=== PATIENT | female | born 1995 | race African-American/Black ===

== ENCOUNTER 2019-05-05 18:04 | Emergency (ER) | payer SELFPAY ==
[2019-05-05 18:27] VITALS: TEMP 98; BMI 31.0
[2019-05-05] MEDS ORDERED: KETOROLAC TROMETHAMINE 30 MG/1 ML VIAL IM ONE (19:39)
[2019-05-05] MEDS ORDERED: KETOROLAC TROMETHAMINE 30 MG/1 ML VIAL ONE (19:52)
[2019-05-05] MEDS ORDERED: CEPHALEXIN 250 MG/5 ML ORAL SUSPENSION PO ONE (20:04)
--- NOTE | 2019-05-05 20:06 | PDOC ---
History of Present Illness - General Chief Complaint: Wound Stated Complaint: LOWER ABD PAIN Time Seen by Provider: 05/05/19 18:47 History Source: Patient Exam Limitations: No Limitations - History of Present Illness Initial Comments: 05/05/19 20:05 24-year-old female reports blood glucose in the 300's 3 weeks ago on routine blood exam was started on metformin 1 g twice daily of which she took for 10 days and was told to discontinue by her PMD. Then developed a yeast infection 1 week ago which was treated by her [facility] [employer] physician. Presents today complaining of left vaginal labia pain and swelling x24 hours. LMP 1 week ago, denies sexual activity since December 2018, vaginal discharge, fever, chills, abdominal pain, urinary complaints, back pain or any other complaints. Denies history of STIs. Has not taken any pain medication today. ROS: GENERAL/CONSTITUTIONAL: No fever, chills, weakness, dizziness HEAD, EYES, EARS, NOSE AND THROAT: No changes in vision, No ear pain or discharge, No sore throat CARDIOVASCULAR: No chest pain RESPIRATORY: No shortness of breath or cough GASTROINTESTINAL: No pain, nausea, vomiting, diarrhea or constipation GENITOURINARY: Left vaginal labia pain and swelling, no dysuria MUSCULOSKELETAL: No neck or back pain SKIN: No rash NEUROLOGIC: No headache, vertigo, loss of consciousness, or loss of sensation PE: GENERAL: well-appearing, NAD HEAD: NCAT EYES: Pupils equal, round and reactive to light, sclera anicteric, conjunctiva clear ENT: pharynx: no erythema, no exudate, uvula midline NECK: supple CHEST: nontender RESP: clear, no w/r/r CARDIO: rrr, no m/g/r ABD: +BS, soft, nontender, non distended pelvic: Left labia swelling, indurated area approximately 2 cm x 1.5 cm to left lower labia with small fluctuant center, no drainage or bleeding noted, no palpable inguinal lymph nodes BACK: no midline spinal ttp, no CVAT EXTREMITIES: Normal range of motion, no edema NEUROLOGICAL: Normal speech, normal gait SKIN: Warm, Dry Is this a multiple visit Asthma Patient?: No Past History - Past Medical History Allergies/Adverse Reactions: Allergies Allergy/AdvReac Type Severity Reaction Status Date / Time No Known Allergies Allergy Verified 05/05/19 18:15 Home Medications: Ambulatory Orders Cephalexin [Keflex] 500 mg PO QID 10 Days #40 capsule 05/05/19 COPD: No - Psycho Social/Smoking Cessation Hx Smoking History: Never smoked *Physical Exam - Vital Signs Last Vital Signs Temp Pulse Resp BP Pulse Ox 98 F 100 H 18 125/71 99 05/05/19 18:17 05/05/19 18:17 05/05/19 18:17 05/05/19 18:17 05/05/19 18:17 Procedures - Incision and Drainage I&D Site: Left: Other (vaginal labia) Betadine cleansed: Yes Anesthesia: 1% Lidocaine Volume(ml): 5 (Approximately 5 mL's of serosanguineous drainage expressed) Blade Size: 11 Attempts: 1 Iodinated Packin/4 in Complications: none Dressing: No Medical Decision Making - Medical Decision Making 05/05/19 20:25 24-year-old female with left labial abscess I&D of abscess Tetanus up-to-date IM Toradol P.o. cephalexin Follow-up with [facility] [employer] Return return precautions Discharge - Discharge Information Problems reviewed: Yes Clinical Impression/Diagnosis: Labial abscess Condition: Stable Disposition: HOME - Admission No - Follow up/Referral - Patient Discharge Instructions Additional Instructions: Take cephalexin 500 mg every 6 hours for 10 days Follow-up with your [employer] doctor within 2 to 3 days Return to ED immediately if symptoms worsen Take ibuprofen 600 mg every 6 hours as needed for pain - Post Discharge Activity
[2019-05-05] MEDS ORDERED: CEPHALEXIN MONOHYDRATE 500 MG CAPSULE (UD) ONE (20:18)
[2019-05-05 20:41] VITALS: BP 122/70; PULSE 88
--- NOTE | 2019-05-06 00:36 | PDOC ---
*Physical Exam - Vital Signs Last Vital Signs Temp Pulse Resp BP Pulse Ox 98 F 88 18 122/70 98 05/05/19 18:17 05/05/19 20:40 05/05/19 20:40 05/05/19 20:40 05/05/19 20:40 ED Treatment Course - Medications Given in the ED: ED Medications Discontinued Medications Generic Name Dose Route Start Last Admin Trade Name Gasper PRN Reason Stop Dose Admin Cephalexin 500 mg 05/05/19 20:04 05/05/19 20:22 Keflex Oral Suspension - PO 05/05/19 20:05 500 mg ONCE ONE Administration Ketorolac Tromethamine 30 mg 05/05/19 19:39 05/05/19 20:22 Toradol Injection - IM 05/05/19 19:40 30 mg ONCE ONE Administration Medical Decision Making - Medical Decision Making 05/06/19 00:35 Case reviewed, was available for consultation during clinical course Discharge - Discharge Information Problems reviewed: Yes Clinical Impression/Diagnosis: Labial abscess Condition: Stable Disposition: HOME - Additional Discharge Information Prescriptions: Cephalexin [Keflex] 500 mg PO QID 10 Days #40 capsule - Follow up/Referral - Patient Discharge Instructions Additional Instructions: Take cephalexin 500 mg every 6 hours for 10 days Follow-up with your [facility] doctor within 2 to 3 days Return to ED immediately if symptoms worsen Take ibuprofen 600 mg every 6 hours as needed for pain - Post Discharge Activity
== END 2019-05-05 20:41 | disposition home or self-care (01) ==
LOC: JER 18:04
PROC: 0U9M0ZZ Drainage of Vulva, Open Approach (ICD-10-PCS; principal; 2019-05-05)
PROC: 3E0233Z Introduction of Anti-inflammatory into Muscle, Percutaneous Approach (ICD-10-PCS; 2019-05-05)
DX: N76.4 Abscess of vulva (principal)
CPT/HCPCS: 99284-25

== ENCOUNTER 2019-05-08 20:42 | Emergency (ER) | payer SELFPAY ==
[2019-05-08 20:53] VITALS: BP 131/81; PULSE 106; TEMP 98; BMI 31.1
[2019-05-08] MEDS ORDERED: CEPHALEXIN MONOHYDRATE 500 MG CAPSULE (UD) PO ONE (21:17)
--- NOTE | 2019-05-08 21:21 | PDOC ---
History of Present Illness - General Chief Complaint: Edema Stated Complaint: SUTURE PAIN Time Seen by Provider: 05/08/19 20:59 History Source: Patient Exam Limitations: No Limitations - History of Present Illness Initial Comments: 05/08/19 21:23 Patient is a 24-year-old female who presents to the ED for follow-up of her left labial abscess. She states she was here on 05/05/2019 and had the labial abscess I&D. She states that the packing fell out on its own. She was unable to mushroom picker her antibiotics and states she will pick them up tomorrow. She has not been doing sitz bath. She states the pain has been the same since the I&D. She denies any fevers or chills. She states she has a history of hypertension and is on metoprolol. Past History - Past Medical History Allergies/Adverse Reactions: Allergies Allergy/AdvReac Type Severity Reaction Status Date / Time No Known Allergies Allergy Verified 05/08/19 20:53 Home Medications: Ambulatory Orders Cephalexin [Keflex] 500 mg PO QID 10 Days #40 capsule 05/05/19 COPD: No - Reproductive History Therapeutic (s) & number: No - Immunization History Immunization Up to Date: Yes - Psycho Social/Smoking Cessation Hx Smoking History: Never smoked Hx Alcohol Use: No Drug/Substance Use Hx: No Review of Systems - Review of Systems Comments:: 05/08/19 21:24 - Review of Systems Able to Perform ROS?: Yes Constitutional: No: Fever, Chills, Loss of Appetite, Night Sweats, Weakness Respiratory: No: Cough, Shortness of Breath, Wheezing, Sputum Production Cardiac (ROS): No: Chest Pain, Chest Tightness, Palpitations, Irregular Heart Beat, Edema ABD/GI: No: Nausea, Vomiting, Abdominal Pain, Diarrhea : No Dysuria, No Hematuria, No Frequency, No Urgency, positive left labial abscess Musculoskeletal: No: Muscle Pain, Back Pain, Joint Pain, Muscle Weakness, Neck Pain Integumentary: No: Lesions, Rash Neurological: No: Headache, Numbness, Tingling, Weakness, Speech Difficulties *Physical Exam - Vital Signs Last Vital Signs Temp Pulse Resp BP Pulse Ox 98.0 F 106 H 18 131/81 98 05/08/19 20:47 05/08/19 20:47 05/08/19 20:47 05/08/19 20:47 05/08/19 20:47 - Physical Exam 05/08/19 21:24 - Physical Exam General Appearance: Nourished, Appropriately Dressed, No Distress Neck: Supple, No Lymphadenopathy (R), No Lymphadenopathy (L), No Rigidity, No Decreased range of motion Respiratory/Chest: Lungs Clear, Normal Breath Sounds. No Respiratory Distress, No Accessory Muscle Use Cardiovascular: Regular Rhythm, Regular Rate, S1, S2 Gastrointestinal/Abdominal: Normal Bowel Sounds, Soft. Non-tender, No Guarding , No Rebound, No Rigidity FACETER: There is a left labial abscess with healing incision site appreciated. There is no fluctuance and moderate induration appreciated. There is significant tenderness to palpation. There is no active drainage. There is no foul odor. Musculoskeletal: Normal Inspection. No Decreased Range of Motion Extremity: Normal Capillary Refill, Normal Inspection Integumentary: Normal Color, Dry. No Rash Neurologic: gas tester II-XII NML intact, Fully Oriented, Alert, Normal Mood/Affect, Normal Response Medical Decision Making - Medical Decision Making 05/08/19 21:18 Assessment: Patient is a 24-year-old female with a left labial abscess that was drained a few days ago. The patient states that the packing fell out on its own. She was unable to mushroom picker her antibiotics until tomorrow. Plan: The patient has been made aware that there is no fluctuance or area to be drained today. She must continue to do sits baths and take the antibiotics prescribed. A dose of the antibiotic was given to her today in the emergency department. She has been advised that if the abscess recollects, she may require another I&D. She should follow-up with [facility] for further evaluation and treatment and referral has been given to her. She understands and agrees with this treatment plan and the patient is stable for discharge. She has been encouraged to mushroom picker her prescription as soon as possible and started immediately. Discharge - Discharge Information Problems reviewed: Yes Clinical Impression/Diagnosis: Left genital labial abscess Condition: Stable Disposition: HOME - Follow up/Referral Referrals: Nelly Downs MD [Staff Physician] - 2 Days - Patient Discharge Instructions Patient Printed Discharge Instructions: Vulvar Abscess Additional Instructions: Do sitz bath several times daily to help your abscess resolved. 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 Follow- up with [facility] within 2 days for repeat evaluation. If you do not have an OB/ FACETER, one has been referred to you. - Post Discharge Activity Work/Back to School Note: Back to Work
[2019-05-08] MEDS ORDERED: CEPHALEXIN MONOHYDRATE 500 MG CAPSULE (UD) ONE (21:22)
== END 2019-05-08 21:41 | disposition home or self-care (01) ==
LOC: JERFT 20:42
DX: N76.4 Abscess of vulva (principal); I10 Essential (primary) hypertension
CPT/HCPCS: 99283-25

== ENCOUNTER 2020-06-23 10:20 | Inpatient (IN) | payer OTHER ==
[2020-06-23] MEDS ORDERED: METOCLOPRAMIDE HCL INJECTION 10 MG/2 ML VIAL ONE (12:22)
[2020-06-23 12:23] LABS: BASO % 0.1 % (0-2.0); EOS % 0.7 % (0-4.5); HEMATOCRIT 33.3 % (32.4-45.2); HEMOGLOBIN 11.2 GM/dL (10.7-15.3); LYMPH % 27.5 % (8-40); MCHC 33.8 g/dl (32.0-36.0); MEAN CELL VOLUME 83.1 fl (80-96); MEAN PLT VOLUME 9.6 fl (7.5-11.1); MONO % 7.2 % (3.8-10.2); NEUT % 64.5 % (42.8-82.8); PLATELET COUNT 176 K/MM3 (134-434); RBC 4.01 M/mm3 (3.60-5.2); RDW 14.3 % (11.6-15.6); WHITE BLOOD COUNT 6.1 K/mm3 (4.0-10.0)
[2020-06-23 12:29] VITALS: BMI 29.5
[2020-06-23] MEDS ORDERED: OXYTOCIN 20 UNITS in 0.9% NS 20 UNIT/1,000 ML INFUS.BAG IV ONE (12:30)
[2020-06-23 12:31] LABS: INR 0.92 (0.83-1.09); PROTHROMBIN TIME (PATIENT) 11.2 SEC (9.7-13.0)
[2020-06-23] MEDS ORDERED: PHENYLEPHRINE HCL 10 MG/1 ML SINGLE DOSE VIAL ONE (12:32)
[2020-06-23] MEDS ORDERED: ceFAZolin SODIUM 1 GM VIAL ONE (12:32)
[2020-06-23 12:34] LABS: ACTIVATED PTT 25.5 SECONDS (25.2-36.5)
[2020-06-23] MEDS ORDERED: morphine SULFATE/PF 0.5 MG/ML (2cc Syringe - QUVA) ONE (12:35)
[2020-06-23 12:48] LABS: CALCIUM 8.9 mg/dL (8.5-10.1)
[2020-06-23 12:49] LABS: BLOOD UREA NITROGEN 8.5 mg/dL (7-18)
[2020-06-23 12:52] LABS: CREATININE 0.9 mg/dL (0.55-1.3)
[2020-06-23] MEDS ORDERED: KETOROLAC TROMETHAMINE 30 MG/1 ML VIAL ONE (13:24)
[2020-06-23] MEDS ORDERED: ONDANSETRON 4 MG/2 ML VIAL ONE (13:24)
[2020-06-23] MEDS ORDERED: ONDANSETRON 4 MG/2 ML VIAL IVPUSH PRN (13:27)
[2020-06-23] MEDS ORDERED: morphine SULFATE/PF 0.5 MG/ML (2cc Syringe - QUVA) EP ONE (13:27)
[2020-06-23] MEDS ORDERED: IBUPROFEN 800 MG/8 ML IJ IVPB PRN (14:01)
[2020-06-23] MEDS ORDERED: ONDANSETRON 4 MG/2 ML VIAL IVPB PRN (14:01)
[2020-06-23] MEDS ORDERED: IBUPROFEN 600 MG TABLET (FP) PO PRN (14:01)
[2020-06-23] MEDS ORDERED: SENNOSIDES/DOCUSATE COMBO (SENNA PLUS) TABLET (UD) PO PRN (14:01)
[2020-06-23] MEDS ORDERED: ACETAMINOPHEN 325 MG TABLET (FP) PO PRN (14:01)
[2020-06-23] MEDS ORDERED: ACETAMINOPHEN 1000 MG/100 ML VIAL (NON FORMULARY) IVPB PRN (14:01)
[2020-06-23] MEDS ORDERED: METHYLERGONOVINE MALEATE 0.2 MG TABLET (FP) PO PRN (14:01)
[2020-06-23] MEDS ORDERED: OXYTOCIN 20 UNITS in 0.9% NS 20 UNIT/1,000 ML INFUS.BAG IV SCH (14:15)
[2020-06-23] MEDS: CEFAZOLIN 2 GM/D5W 2 GM/50 ML ML IVPB SCH (17:54)
[2020-06-24] MEDS: CEFAZOLIN 2 GM/D5W 2 GM/50 ML ML IVPB SCH (01:23)
[2020-06-24] MEDS: oxyCODONE HCL 5 MG TABLET PO PRN (08:27)
[2020-06-24 10:05] LABS: BASO % 0.2 % (0-2.0); EOS % 0.5 % (0-4.5); HEMATOCRIT 32.3 % (32.4-45.2); HEMOGLOBIN 10.7 GM/dL (10.7-15.3); LYMPH % 17.9 % (8-40); MCH 27.6 pg (25.7-33.7); MCHC 33.2 g/dl (32.0-36.0); MONO % 8.3 % (3.8-10.2); NEUT % 73.1 % (42.8-82.8); PLATELET COUNT 175 K/MM3 (134-434); RBC 3.89 M/mm3 (3.60-5.2); RDW 14.4 % (11.6-15.6); WHITE BLOOD COUNT 6.7 K/mm3 (4.0-10.0)
[2020-06-24] MEDS: IBUPROFEN 600 MG TABLET (FP) PO PRN ×2 (11:27→18:39)
[2020-06-24] MEDS: ACETAMINOPHEN 325 MG TABLET (FP) PO PRN ×2 (11:28→18:39)
[2020-06-24] MEDS ORDERED: BISACODYL 10 MG SUPP.RECT RC PRN (14:02)
[2020-06-25] MEDS: ACETAMINOPHEN 325 MG TABLET (FP) PO PRN ×3 (00:46→17:27)
[2020-06-25] MEDS: IBUPROFEN 600 MG TABLET (FP) PO PRN ×3 (00:46→17:27)
[2020-06-25] MEDS: oxyCODONE HCL 5 MG TABLET PO PRN (00:47)
[2020-06-25] MEDS: SIMETHICONE 80 MG TAB.CHEW (FP) PO PRN ×2 (00:47→12:30)
[2020-06-25 11:42] VITALS: BP 124/73; PULSE 80; TEMP 98
== END 2020-06-25 18:00 | disposition home or self-care (01) | DRG 540 ==
LOC: JDEL 10:20 → JLDR 12:00 → J3W 17:51
PROVIDERS: ADMIT Specialist; ATTEND Specialist
PROC: 10D00Z1 Extraction of Products of Conception, Low, Open Approach (ICD-10-PCS; principal; 2020-06-23)
DX: O28.9 Unspecified abnormal findings on antenatal screening of mother (principal); O24.425 Gestational diabetes mellitus in childbirth, controlled by oral hypoglycemic drugs; O36.8330 Maternal care for abnormalities of the fetal heart rate or rhythm, third trimester, not applicable or unspecified; O36.63X0 Maternal care for excessive fetal growth, third trimester, not applicable or unspecified; O40.3XX0 Polyhydramnios, third trimester, not applicable or unspecified; Z3A.37 37 weeks gestation of pregnancy; Z37.0 Single live birth
CPT/HCPCS: 36415; 59025; 76819-TC; 80048; 82962; 85025; 85610; 85730; 86780; 86850; 86900; 86901; 88307-TC; C9803; J0131; U0003; U0005

== ENCOUNTER 2023-08-15 02:38 | Emergency (ER) | payer OTHER ==
[2023-08-15 02:55] VITALS: BMI 26.1
[2023-08-15] MEDS: SODIUM CHLORIDE 0.9% 500 ML INFUS.BAG IV ONE (03:16)
[2023-08-15 03:43] LABS: VENOUS BASE EXCESS -1.5 mmol/L (-2-2); VENOUS O2 SATURATION 60.2 % (70-80); VENOUS PH 7.385 (7.310-7.410)
[2023-08-15 03:48] LABS: BASO % 0.2 % (0-2.0); HEMATOCRIT 37.6 % (32.4-45.2); HEMOGLOBIN 12.7 GM/dL (10.7-15.3); LYMPH % 33.6 % (8-40); MCH 27.4 pg (25.7-33.7); MCHC 33.9 g/dl (32.0-36.0); MEAN CELL VOLUME 80.9 fl (80-96); MEAN PLT VOLUME 9.2 fl (7.5-11.1); MONO % 6.2 % (3.8-10.2); PLATELET COUNT 238 10^3/uL (134-434); RBC 4.64 M/mm3 (3.60-5.2); RDW 14.1 % (11.6-15.6); WHITE BLOOD COUNT 5.9 K/mm3 (4.0-10.0)
[2023-08-15 04:16] LABS: CHLORIDE 100 mmol/L (98-107); POTASSIUM 3.7 mmol/L (3.5-5.1); SODIUM 132 mmol/L (136-145)
[2023-08-15 04:18] LABS: CALCIUM 8.6 mg/dL (8.5-10.1)
[2023-08-15 04:19] LABS: ALBUMIN 3.7 g/dl (3.4-5.0); ANION GAP 9 mmol/L (4-13); BLOOD UREA NITROGEN 11.7 mg/dL (7-18); CO2 23 mmol/L (21-32); MAGNESIUM 1.8 mg/dL (1.8-2.4)
[2023-08-15 04:22] LABS: CREATININE 0.8 mg/dL (0.55-1.3); SGOT/AST 6 U/L (15-37); SGPT/ALT 14 U/L (13-61)
[2023-08-15 04:23] LABS: BILIRUBIN,TOTAL 0.4 mg/dL (0.2-1); TOT PROT 7.1 g/dl (6.4-8.2)
[2023-08-15 04:25] LABS: ALK PHOS 97 U/L (45-117)
[2023-08-15 04:28] LABS: GLUCOSE,RANDOM 424 mg/dL (74-106)
[2023-08-15] MEDS ORDERED: INSULIN (NOVOLOG) ASPART 100 UNITS/ML 10ML VIAL ONE (04:39)
[2023-08-15] MEDS: LACTATED RINGERS SOLUTION 1,000 ML/1,000 ML INFUS.BAG IV SCH (04:47)
[2023-08-15] MEDS: INSULIN REGULAR HUMAN 100 UNITS/ML *VIAL IVPUSH ONE (04:47)
[2023-08-15] MEDS ORDERED: POTASSIUM CHLORIDE ORAL LIQUID 20 MEQ/15 ML ONE (06:04)
[2023-08-15] MEDS: POTASSIUM CHLORIDE ORAL LIQUID 20 MEQ/15 ML PO ONE (06:10)
[2023-08-15] MEDS ORDERED: POTASSIUM CHLORIDE TABS 20 MEQ TABLET.ER (FP) PO ONE (06:24)
[2023-08-15 06:57] VITALS: BP 104/58; PULSE 84; RESP 16; TEMP 98
[2023-08-15 10:07] LABS: PH,URINE 6.5 (5.0-8.0); URINE APPEARANCE CLEAR; URINE BILIRUBIN NEGATIVE (NEGATIVE); URINE COLOR YELLOW; URINE GLUCOSE (UA) 2+ (NEGATIVE); URINE KETONE 2+ (NEGATIVE); URINE LEUK ESTERASE NEGATIVE (NEGATIVE); URINE NITRITE NEGATIVE (NEGATIVE); URINE PROTEIN NEGATIVE (NEGATIVE); URINE UROBILINOGEN 0.2 mg/dL (0.2-1.0)
== END 2023-08-15 07:49 | disposition home or self-care (01) ==
LOC: JER 02:38
PROC: 3E033GC Introduction of Other Therapeutic Substance into Peripheral Vein, Percutaneous Approach (ICD-10-PCS; principal; 2023-08-15)
DX: R73.9 Hyperglycemia, unspecified (principal); R53.1 Weakness
CPT/HCPCS: 36415; 80053; 81003; 82010; 82803; 82962; 83735; 84703; 85025; 87077; 87086; 99284-25